=== PATIENT | female | born 1980 | race Caucasian/White ===

== ENCOUNTER 2020-12-30 06:53 | Emergency (ER) | payer OTHER ==
[2020-12-30] MEDS ORDERED: GLUCOPHAGE PO (07:02)
[2020-12-30] MEDS ORDERED: VIBRAMYCIN HYC100 MG (07:02)
[2020-12-30] MEDS ORDERED: PROZAC40 M1 (07:02)
[2020-12-30 08:00] LABS: BASO # 0.02 (0.02-0.10); HEMATOCRIT 43.8 % (37.0-47.0); HEMOGLOBIN 14.9 g/dL (12.5-16.0); LYMPH# 0.72 (1.50-4.00); MEAN CELL VOLUME 84 fl (78-100); MEAN CORPUSCULAR HEMOGLOBIN 28 pg (27-31); MEAN CORPUSCULAR HGB CONC 34 g/dL (33-37); MEAN PLATELET VOLUME 10.4 fl (7.4-10.4); MONO # 0.39 (0.20-0.80); NEU # 11.89 (1.40-6.50); PLATELET COUNT 288 K/mm3 (130-400); RED BLOOD COUNT 5.24 M/mm3 (4.10-5.30); RED CELL DISTRIBUTION WIDTH 13.5 % (11.5-14.5)
[2020-12-30 08:09] LABS: ALBUMIN 4.4 g/dL (3.5-5.0); POTASSIUM 3.8 mmol/L (3.5-5.1); SODIUM 137 mmol/L (136-145)
[2020-12-30 08:10] LABS: CALCIUM 10.5 mg/dL (8.3-10.5)
[2020-12-30 08:11] LABS: GLUCOSE 161 mg/dL (65-105)
[2020-12-30 08:12] LABS: TOTAL PROTEIN 7.9 g/dL (6.4-8.3)
[2020-12-30 08:13] LABS: TOTAL BILIRUBIN 0.3 mg/dL (0.2-1.2)
[2020-12-30 08:17] LABS: AST-SGOT 14 U/L (5-34)
[2020-12-30 08:18] LABS: ALT/SGPT 17 U/L (0-55)
[2020-12-30 08:19] LABS: CARBON DIOXIDE 18 mmol/L (22-29)
[2020-12-30 08:25] LABS: D-DIMER 0.38 mg/L FEU (0.15-0.50); TROPONIN-I < 0.03 ng/mL (<0.030)
[2020-12-30 08:26] LABS: PH-URINE 5.5 (5.0 - 8.0); URINE APPEARANCE CLEAR; URINE BILIRUBIN NEGATIVE (NEGATIVE); URINE BLOOD 50 ery/uL (NEGATIVE); URINE COLOR LT YELLOW; URINE GLUCOSE NEGATIVE (NEGATIVE); URINE KETONE NEGATIVE (NEGATIVE); URINE LEUKOCYTE ESTERASE NEGATIVE (NEGATIVE); URINE NITRATE NEGATIVE (NEGATIVE); URINE PROTEIN(semi-quant) NEGATIVE (NEGATIVE); URINE UROBILINOGEN NORMAL (NORMAL); URINE WBC 0-1 /hpf (0-3)
[2020-12-30 08:57] VITALS: BP 138/98
== END 2020-12-30 08:53 | disposition home or self-care (01) ==
LOC: ED 06:53
PROVIDERS: Physician Assistant
DX: R00.2 Palpitations (principal); D72.829 Elevated white blood cell count, unspecified; E11.9 Type 2 diabetes mellitus without complications; I10 Essential (primary) hypertension; Z79.84 Long term (current) use of oral hypoglycemic drugs

== ENCOUNTER → 2021-03-22 | Outpatient (CLI) | payer OTHER ==
[~2021-03-22] MED LIST: GLUCOPHAGE PO; PROZAC40 M1; VIBRAMYCIN HYC100 MG
== END ==
LOC: LAB 10:52
DX: Z20.822 Contact with and (suspected) exposure to COVID-19 (principal)

== ENCOUNTER → 2023-05-09 | Outpatient (CLI) | payer OTHER ==
[~2023-05-09] MED LIST changes: +BACTRIM DS TAB1 EACH PO; +CLARITIN LIQUI-10 MG PO; +FLUTICASONE-SA1 EAC4 IH; +IBU800 M1 PO; +MEDI TP; +METOPROLOL SUCC25 M1 PO; +MIRALAX17 GM PO; +SINGULAIR PO; +TRAMADOL 50 MG TAB PO; +ZYRTEC10 M3 PO
== END ==
LOC: LAB 15:03
PROVIDERS: Physician Assistant
DX: D62 Acute posthemorrhagic anemia (principal)

== ENCOUNTER → 2023-05-16 | Outpatient (CLI) | payer OTHER ==
[2023-05-16 14:02] LABS: HEMOGLOBIN 12.5 g/dL (12.5-16.0)
== END ==
LOC: LAB 13:52
PROVIDERS: Nurse Practitioner Family
DX: T14.8XXA Other injury of unspecified body region, initial encounter (principal)

== ENCOUNTER → 2023-10-20 | Outpatient (CLI) | payer OTHER | LOC: RAD 13:16 | DX: M51.36 Other intervertebral disc degeneration, lumbar region (principal); M51.37 Other intervertebral disc degeneration, lumbosacral region; M48.061 Spinal stenosis, lumbar region without neurogenic claudication; S30.0XXD Contusion of lower back and pelvis, subsequent encounter; X58.XXXD Exposure to other specified factors, subsequent encounter ==